=== PATIENT | female | born 1975 | race Caucasian/White ===

== ENCOUNTER 2016-10-19 18:47 | Emergency (ER) | payer OTHER ==
[~2016-10-19] VITALS: Ht 157.5 cm; Wt 54.4 kg
[2016-10-19 18:48] VITALS: BP 134/75
[2016-10-19] MEDS ORDERED: IBUP-1114 PO (19:08)
[2016-10-19] MEDS ORDERED: CYCL10TA PO (21:13)
[2016-10-19] MEDS ORDERED: IBUP600T26 PO (21:13)
[2016-10-19] MEDS ORDERED: CARISOPRODOL 350 MG TAB PO ONE (21:15)
== END 2016-10-19 21:47 | disposition home or self-care (01) ==
LOC: M ED 20:12
DX: S39.012A Strain of muscle, fascia and tendon of lower back, initial encounter (principal); X58.XXXA Exposure to other specified factors, initial encounter; Y92.89 Other specified places as the place of occurrence of the external cause; Y93.89 Activity, other specified; Y99.9 Unspecified external cause status

== ENCOUNTER → 2017-09-05 | Outpatient (REF) | payer OTHER ==
[2017-09-07 14:13] LABS: HPV HYBRID CAPTURE II Negative (Negative)
== END ==
LOC: M LAB REF 13:19
DX: Z12.4 Encounter for screening for malignant neoplasm of cervix (principal)

== ENCOUNTER → 2019-12-26 | Outpatient (REF) | payer OTHER ==
[~2019-12-26] MED LIST: CYCL-707 PO; IBUP-1022 PO; IBUP-1114 PO
[2019-12-26 14:25] LABS: FOLLICLE STIMULATING HORMONE 44.1 mIU/mL; LUTEINIZING HORMONE 43.7 mIU/mL
== END ==
LOC: M PLALAB 09:50
PROVIDERS: ATTEND Specialist
DX: N95.1 Menopausal and female climacteric states (principal)

== ENCOUNTER → 2020-01-16 | Outpatient (CLI) | payer OTHER ==
--- NOTE | 2020-01-16 12:33 | REPMRS ---
Patient History The patient states she had a clinical breast exam in November 2019. Family history of colorectal cancer in maternal grandfather, lymphoma in paternal grandmother. Benign excisional biopsy of the left breast, February 05, 2015. Benign lumpectomy of the left breast, November 1999. Taking hormonal contraceptives for 11 years. Digital Woman Screen Mammo: January 16, 2020 - Exam #: [id number] Bilateral CC and MLO view(s) were taken. Technologist: Jessi Rachel, Technologist Prior study comparison: September 05, 2017, bilateral digital woman screen mammo, performed at [facility] [place]. September 15, 2015, left breast digital mammo diagnostic unilateral, performed at [facility]. March 31, 2011, bilateral digital woman screen mammo, performed at [facility] [place]. FINDINGS: The breast tissue is extremely dense which could obscure a lesion on mammography. The Volpara volumetric breast density category is: D. There are stable linear calcifications on the left. On the MLO view, there appear to be some new punctate microcalcifications inferiorly and laterally on the left breast. This merits further evaluation. They are not seen on the craniocaudal view. There is an extremely dense symmetrical pattern of residual fibroglandular tissue. There has been no other change in the appearance of the mammogram from the previous studies. 3-D tomosynthesis shows no additional findings. Assessment: BI-RADS/ACR category 0 mammogram, Incomplete: Need additional imaging evaluation and/or prior mammograms for comparison. Recommendation Special view mammogram of the left breast. This patient's Lifetime Breast Cancer RIsk is estimated at 12.2 %. This mammogram was interpreted with the aid of an FDA-approved computer-aided dectection system. Electronically Signed By: Dixon Orozco MD 01/16/20 [id number]
== END ==
LOC: M WHC 09:12
PROVIDERS: ATTEND Specialist
DX: Z12.31 Encounter for screening mammogram for malignant neoplasm of breast (principal); Z80.0 Family history of malignant neoplasm of digestive organs; Z80.7 Family history of other malignant neoplasms of lymphoid, hematopoietic and related tissues; R92.0 Mammographic microcalcification found on diagnostic imaging of breast; R92.1 Mammographic calcification found on diagnostic imaging of breast

== ENCOUNTER → 2020-01-31 | Outpatient (CLI) | payer OTHER ==
--- NOTE | 2020-01-31 16:01 | REP ---
DIGITAL DIAGNOSTIC UNILATERAL LEFT BREAST MAMMOGRAPHY WITH CAD AND FOCUSED LEFT BREAST ULTRASOUND: HISTORY: Screening mammography January 16, 2020 was BIRADS category 0 regarding a new punctate microcalcifications inferiorly and laterally in the left breast. Diagnostic imaging was recommended. Comparison is also made with September 15, 2015 and September 05, 2017 prior mammography. The patient gives a history of two previous lumpectomy for calcifications in this region of the left breast. MAMMOGRAPHIC FINDINGS: Magnified focal spot compression CC, true mediolateral, and mediolateral oblique views confirm the presence of a new grouping of punctate microcalcifications in the inferior aspect of the left breast at approximately 5-o'clock position. Breast parenchyma remains hyperdense. There is some vascular calcification medially in the left breast. No other mammographic finding. SONOGRAPHIC FINDINGS: Focused left breast sonography was performed in an attempt to identify a correlated target to the microcalcific grouping since stereotactic needle biopsy can be anticipated to be problematic. In the 5-o'clock region of the left breast, 3 cm from the nipple, there is a hypoechoic area visualized with echogenic foci within it and the demonstrating some observable blood flow. This may well correspond to the microcalcifications seen mammographically. Histologic sampling is recommended here under ultrasound guidance with marker clip placement. IMPRESSION: BIRADS category 4 suspicious left breast imaging. Microcalcific grouping inferior and lateral left breast 5-o'clock position with a corresponding hypoechoic 1.4 x 0.5 x 1.3 cm nodule containing echogenic foci seen on ultrasound. Ultrasound-guided needle biopsy recommended with marker clip placement and post clip placement mammography. Specimen radiography is also recommended. This mammogram was interpreted with the aid of an FDA-approved computer-aided detection system.
== END ==
LOC: M WHC 13:50
PROVIDERS: ATTEND Specialist
DX: Z12.31 Encounter for screening mammogram for malignant neoplasm of breast (principal)

== ENCOUNTER → 2020-07-08 | Outpatient (REF) | payer OTHER | LOC: M LAB REF 17:37 | PROVIDERS: ATTEND Dermatology | DX: L90.5 Scar conditions and fibrosis of skin (principal) ==

== ENCOUNTER → 2021-01-05 | Outpatient (REF) | payer OTHER | LOC: M SFHCWAGY 19:03 | PROVIDERS: ATTEND Specialist | DX: Z12.4 Encounter for screening for malignant neoplasm of cervix (principal) | CPT/HCPCS: 87624; G0123 ==

== ENCOUNTER → 2022-06-27 | Outpatient (CLI) | payer OTHER ==
[~2022-06-27] MED LIST changes: +ALLE180T33 PO; +FLON1SPR; +OMEP-173 PO; +VITMTA PO
== END ==
LOC: M LABSMTC 10:38
PROVIDERS: ATTEND Anesthesiology
DX: Z01.812 Encounter for preprocedural laboratory examination (principal); Z11.52 Encounter for screening for COVID-19

== ENCOUNTER 2022-07-01 08:54 | Day surgery (SDC) | payer OTHER ==
[~2022-07-01] VITALS: Ht 157.5 cm; Wt 55.8 kg
[~2022-07-01 08:54] MED LIST changes: +MIDAZOLAM INJ 2MG/2ML VIAL (J2250 PER 1MG) As Ordered ONE; +NS 1,000 ML IV ONE
[2022-07-01] MEDS ORDERED: LIDOCAINE 2% 100MG/5ML SDV (FOR ANES.) As Ordered ONE (09:36)
[2022-07-01] MEDS ORDERED: propofoL 200 MG/20 ML VIAL As Ordered ONE (09:36)
[2022-07-01 11:37] VITALS: BP 123/78
== END 2022-07-01 11:39 | disposition home or self-care (01) ==
LOC: M OPP 08:54
PROVIDERS: ATTEND Surgery
DX: Z12.11 Encounter for screening for malignant neoplasm of colon (principal); Z80.0 Family history of malignant neoplasm of digestive organs; Z83.71 Family history of colonic polyps; Z87.891 Personal history of nicotine dependence; R12 Heartburn; M19.90 Unspecified osteoarthritis, unspecified site; Z79.51 Long term (current) use of inhaled steroids; Z79.899 Other long term (current) drug therapy; Z88.5 Allergy status to narcotic agent
CPT/HCPCS: 45378; J2250

== ENCOUNTER → 2022-12-06 | Outpatient (REF) | payer OTHER ==
[~2022-12-06] MED LIST changes: -MIDAZOLAM INJ 2MG/2ML VIAL (J2250 PER 1MG) As Ordered ONE; -NS 1,000 ML IV ONE
== END ==
LOC: M SFHCWAGY 12:43
PROVIDERS: ATTEND Specialist
DX: Z12.4 Encounter for screening for malignant neoplasm of cervix (principal)
CPT/HCPCS: 87624; G0123

== ENCOUNTER → 2025-03-14 | Outpatient (REF) | payer OTHER ==
[2025-03-16 13:36] LABS: HPV APTIMA Not Detected (Not Detected)
== END ==
LOC: M SFHCWAGY 11:21
PROVIDERS: ATTEND Specialist
DX: Z12.4 Encounter for screening for malignant neoplasm of cervix (principal)
CPT/HCPCS: 87624; G0123